=== PATIENT | female | born 1970 | race Two or more races ===

== ENCOUNTER 2022-12-25 22:00 | Emergency (ER) | payer OTHER ==
[~2022-12-25] VITALS: Ht 149.9 cm; Wt 74.4 kg
[~2022-12-25 22:00] MED LIST: CATAFLAM50 MG PO
[2022-12-25] MEDS ORDERED: HYDROXYCHLOROQ200 MG PO (22:11)
== END 2022-12-25 23:42 | disposition home or self-care (01) ==
LOC: ER 22:00
DX: S61.411A Laceration without foreign body of right hand, initial encounter (principal); W25.XXXA Contact with sharp glass, initial encounter; Y93.9 Activity, unspecified; Y92.9 Unspecified place or not applicable; Y99.9 Unspecified external cause status

== ENCOUNTER 2023-01-04 11:06 | Emergency (ER) | payer OTHER ==
[~2023-01-04] VITALS: Ht 162.6 cm; Wt 74.4 kg
[~2023-01-04 11:06] MED LIST changes: +HYDROXYCHLOROQ200 MG PO
== END 2023-01-04 14:47 ==
LOC: ER 11:06
DX: Z48.02 Encounter for removal of sutures (principal)